=== PATIENT | female | born 1985 | race Caucasian/White ===

== ENCOUNTER 2017-02-09 06:51 | Day surgery (SDC) | payer OTHER ==
[2017-02-09] VITALS (22 sets, daily range): BP systolic 84–112; BP diastolic 51–69; PULSE 50–70; RESP 12–21; Ht 160 cm; Wt 71.0 kg
[~2017-02-09] VITALS: Ht 160 cm; Wt 71.0 kg
[2017-02-09] MEDS ORDERED: BUPIVACAINE 0.5%/EPI (SDV) 30 ML INJ ONE (09:54)
[2017-02-09] MEDS ORDERED: MIDAZOLAM 1 MG/ML 2 ML INJ ONE (09:58)
[2017-02-09] MEDS ORDERED: FENTAnyl 50 MCG/ML VIAL ONE (09:59)
[2017-02-09] MEDS ORDERED: MEPERIDINE 25 MG INJ IV PRN (10:00)
[2017-02-09] MEDS ORDERED: DIPHENHYDRAMINE 50 MG INJ IV PRN (10:00)
[2017-02-09] MEDS ORDERED: PROCHLORPERAZINE 10 MG INJ IV PRN (10:00)
[2017-02-09] MEDS ORDERED: HYDROmorphONE (0.2 MG/ML) 10ML SYG IV PRN (10:00)
[2017-02-09] MEDS ORDERED: FENTAnyl 50 MCG/ML VIAL IV PRN (10:00)
[2017-02-09] MEDS ORDERED: OXYCODONE/ACETAMINOPHEN (5/325) TAB PO PRN (10:00)
[2017-02-09] MEDS ORDERED: ONDANSETRON 4 MG INJ IV PRN (10:00)
[2017-02-09] MEDS ORDERED: SUCCINYLCHOLINE CHLORIDE 100 MG/5 ML SYG IV ONE (10:11)
[2017-02-09] MEDS ORDERED: PROPOFOL 20 ML ONE (10:11)
[2017-02-09] MEDS ORDERED: ROCURONIUM 50 MG INJ ONE (10:11)
[2017-02-09] MEDS ORDERED: FAMOTIDINE 20 MG INJ ONE (10:11)
[2017-02-09] MEDS ORDERED: LIDOCAINE 2% (SDV) 5 ML INJ ONE (10:11)
[2017-02-09] MEDS ORDERED: DEXAMETHASONE 4 MG/ML 1 ML INJ ONE (10:11)
[2017-02-09] MEDS ORDERED: ONDANSETRON 4 MG INJ ONE (10:11)
[2017-02-09] MEDS ORDERED: CEFAZOLIN 1 GM INJ ONE (10:11)
[2017-02-09] MEDS ORDERED: KETOROLAC 30 MG INJ ONE (10:47)
[2017-02-09] MEDS ORDERED: METOCLOPRAMIDE 10 MG INJ ONE (10:47)
--- NOTE | 2017-02-09 10:48 | OPR ---
Date/Time of Note Date/Time of Note DATE: 02/09/17 TIME: 10:43 Operative Report Procedure Date: Feb 09, 2017 Preoperative Diagnosis Patient desires permanent sterilization. She declined Essure. She desires laparoscopic tubal fulguration. 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 Normal uterus.Adhesion band from omentum to anterior abdominal wall CONSENT: Please see my preop H and P consent in the office for the consent process. DESCRIPTION OF PROCEDURE: She was taken to operating room and general anesthesia was induced. She was prepped and draped in the usual sterile fashion in dorsal lithotomy position. Surgical time-out was done. Anterior lip of the cervix was grasped using a single-tooth tenaculum, and a HUMI was inserted in normal fashion. The tenaculum was removed. There was no bleeding from the cervix. The patient already had a Good catheter as well. Gloves were changed. A 5 mm incision was developed inside the umbilicus. A blunt trocar was inserted in the normal fashion. Intraperitoneal position was confirmed using the laparoscope. Pneumoperitoneum was obtained. The patient was placed in Trendelenburg position. A second trocar was inserted under direct visualization of the laparoscope at the pubic hairline in the midline. Adhesion band from omentum to anterior abdominal wall was taken down with Gyrus. A 5 cm mid ampullary region of the right tube was coagulated. Complete desiccation of the entire diameter of tube was visualized. The middle of the coagulated portion was cut. There was no bleeding. Same procedure was done on the contralateral side. All instruments removed under direct visualization of the laparoscope after pneumoperitoneum was released. There was no bleeding. Skin closed using 4-0 Monocryl. Then 10 mL 0.25% Marcaine with epinephrine was injected at the incision sites. HUMI was removed. There was no bleeding from the vagina. Patient tolerated the procedure well. JOHN LAWSON MD Feb 09, 2017 10:48
== END 2017-02-09 13:55 | disposition home or self-care (01) ==
LOC: SDS 06:51 → MERGE 06:51 → SDS 13:55
PROVIDERS: ATTEND Specialist
DX: Z30.2 Encounter for sterilization (principal)
CPT/HCPCS: 58670; J0690; J1100; J1170; J1885; J2250; J2405; J2765; J3010; Z7512; Z7610